=== PATIENT | female | born 1975 | race Two or more races ===

== ENCOUNTER 2023-09-11 14:13 | Emergency (ER) | payer SELFPAY ==
[~2023-09-11] VITALS: Ht 170.2 cm; Wt 65.9 kg
[2023-09-11] MEDS ORDERED: cefTRIAXone SOD 1,000 MG VL IM ONE (16:30)
[2023-09-11] MEDS ORDERED: CLINDAMYCIN HCL 150 MG CAP PO ONE (16:30)
[2023-09-11] MEDS ORDERED: HYDROcodone-ACET 5/325MG TAB PO ONE (16:30)
[2023-09-11] MEDS ORDERED: HYDR-4902 PO (16:44)
[2023-09-11] MEDS ORDERED: CLIN300C70 PO (16:44)
[2023-09-11] MEDS ORDERED: BACDST PO (16:44)
[2023-09-11 17:20] VITALS: BP 153/76; PULSE 79; RESP 18; TEMP 98.1; O2SAT 100
== END 2023-09-11 17:39 | disposition home or self-care (01) ==
LOC: ER 14:13
DX: K04.7 Periapical abscess without sinus (principal); L03.211 Cellulitis of face; Z79.899 Other long term (current) drug therapy
CPT/HCPCS: 96372; 99283; J0696